=== PATIENT | male | born 1950 | race Caucasian/White ===

== ENCOUNTER 2020-02-20 11:00 | Outpatient (RCR) | payer MEDICARE, SELFPAY ==
--- NOTE | 2019-11-22 16:14 | PTOPEVAL ---
Thank you for referring this patient to [facility]. Please review, sign, date and return this plan of care SHADY. Pt seen today due to lumbago with left sciatica. He demonstrates limited and painful trunk motion, trunk and LE weakness, and decreased tolerance with daily activities. He requires additional PT 2x/wk x 6-8 wk to achieve therapy goals and allow pt to return to PLOF. I agree with and certify that the following plan of care is medically necessary. Referring Physician Date Attending Provider: Erika Ramos NP Referring Provider: *PT Outpatient Evaluation Start: 11/22/19 14:56 Freq: Status: Active Protocol: Document 11/22/19 14:58 DIANNA (Rec: 11/22/19 16:13 DIANNA [id number]) Therapy Assessment Status Assessment Status Assessment Status Evaluation Outpatient Past Medical History Cardiovascular History Hx Hypercholesterolemia Yes Hx Hypertension Yes Gastrointestinal History Hx Other Gastrointestinal Disorders Yes: anal fissure Musculoskeletal History Hx Orthopedic Surgery Yes: bilateral knee, left shoulder Hx Spinal Surgery Yes: lumbar laminectomey L3-4, cervical laminectomey Endocrine History Hx Diabetes Yes HEENT History Hx Tonsillectomy Yes Evaluation Information Problem Diagnosis lumbago with left sciatica Onset 09/24/19 Cause unknown Subjective Information He reports his back started Query Text:As Reported By Patient/ huring the end of August Family with unknown injury. He reports radiating pain from posterior buttock to foot along the posterior leg. He has increased pain with standing, walking, sleeping, ADL's for donning lower part of the body. 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 He was performing a walking program 4x/wk but stopped a year ago. 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 He wants to return to the [employer] activities. He usually rides his motorcycle for these events, but has not been able to ride. He also reports difficulty getting in/out of
--- NOTE | 2019-12-21 12:26 | PTOPEVAL ---
Thank you for referring this patient to [facility]. Please review, sign, date and return this plan of care SHADY. Pt has received 9 physical therapy visits to address back pain. He demonstrates progress with pain, LE strength, and functional mobility compared to initial evaluation. He continues to require additional skilled therapy to address remaining impairments and improve functional mobility. Cont PT 2x/wk x 4 wk. I agree with and certify that the following plan of care is medically necessary. Referring Physician Date Attending Provider: Erika Ramos NP Referring Provider: *PT Outpatient Evaluation Start: 11/22/19 14:56 Freq: Status: Active Protocol: Document 12/21/19 10:02 DIANNA (Rec: 12/21/19 10:47 [facility] [id number]) Therapy Assessment Status Assessment Status Assessment Status Re-evaluation Outpatient Past Medical History Cardiovascular History Hx Hypercholesterolemia Yes Hx Hypertension Yes Gastrointestinal History Hx Other Gastrointestinal Disorders Yes: anal fissure Musculoskeletal History Hx Orthopedic Surgery Yes: bilateral knee, left shoulder Hx Spinal Surgery Yes: lumbar laminectomey L3-4, cervical laminectomey Endocrine History Hx Diabetes Yes HEENT History Hx Tonsillectomy Yes Evaluation Information Problem Diagnosis lumbago with left sciatica Onset 09/24/19 Cause unknown Additional Evaluation Detail He reports his back started huring the end of August with unknown injury. 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 He wants to return to the [employer] activities. Subjective Information He cont have radiating Query Text:As Reported By Patient/ symptoms into left buttock and Family leg region. INcreased symptoms with movement and occasionally when seated. He cont to have problems and pain with standing, walking, sleeping, ADL's for donning lower part of the body. He is able to lift his left leg slightly higher with ADL's. He cont to have problems with getting in/out of the trunk with intermittent improved tolerance.
--- NOTE | 2020-01-19 15:54 | PTOPEVAL ---
Thank you for referring this patient to [facility]. Please review, sign, date and return this plan of care SHADY. Pt has received 15 therapy visits to address impairments related to has back and hip pain. He is progressing towards his therapy goals and functional mobility. HE requires additional skilled therapy 2x/wk x 4 wk to achieve therapy goals. I agree with and certify that the following plan of care is medically necessary. Referring Physician Date Attending Provider: Erika Ramos NP Referring Provider: *PT Outpatient Re-Evaluation Start: 11/22/19 14:56 Freq: Status: Active Protocol: Document 01/19/20 08:31 DIANNA (Rec: 01/19/20 09:06 [facility] [id number]) Therapy Assessment Status Assessment Status Assessment Status Re-evaluation Outpatient Past Medical History Cardiovascular History Hx Hypercholesterolemia Yes Hx Hypertension Yes Gastrointestinal History Hx Other Gastrointestinal Disorders Yes: anal fissure Musculoskeletal History Hx Orthopedic Surgery Yes: bilateral knee, left shoulder Hx Spinal Surgery Yes: lumbar laminectomey L3-4, cervical laminectomey Endocrine History Hx Diabetes Yes HEENT History Hx Tonsillectomy Yes Evaluation Information Problem Diagnosis lumbago with left sciatica Onset 09/24/19 Cause unknown Additional Evaluation Detail He reports his back started huring the end of August with unknown injury. 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 He wants to return to the [employer] activities. Subjective Information He cont have radiating Query Text:As Reported By Patient/ symptoms into left buttock and Family leg region that have decreased in the intensity and decreased frequency. Reports increased pain following repeated bending over to pickle pumper trash yesterday. He cont to have problems and pain with prolonged standing, walking and ADL's for donning lower part of the body. He is able to lift his left leg slightly higher with ADL's. He reports improved asiya with getting in/ out of the trunk but cont pain
--- NOTE | 2020-02-20 16:06 | PTOPEVAL ---
Thank you for referring Vince Cm to [facility]. Please review, sign, date and return this plan of care SHADY. Pt has received 24 therapy visits from 11/22/19-02/20/20 to address his back and hip pain. He demonstrates significant improvement with symptoms, pain level, tolerance with daily activities, muscle strength and joint motion. He is indep with a HEP with improved understanding of proper movement pattern to decrease flare-up of symptoms. DC skilled therapy at this time. I agree with and certify that the following plan of care is medically necessary. Referring Physician Date Attending Provider: Erika Ramos NP Referring Provider: Therapy Discharge Assessment: *PT Outpatient Evaluation Start: 11/22/19 14:56 Freq: Status: Active Protocol: Document 02/20/20 10:58 DIANNA (Rec: 02/20/20 11:35 DIANNA [id number]) Therapy Assessment Status Evaluation Information Problem Diagnosis lumbago with left sciatica Onset 09/24/19 Cause unknown Additional Evaluation Detail He reports his back started huring the end of August with unknown injury. 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 He wants to return to the [employer] activities. Subjective Information He cont numbness of left thigh Query Text:As Reported By Patient/ that has been there since he Family had surgery and has not improved with therapy. He cont to have left posterior hip region. He is able to stand and sit for up to 30 min now, but does cont to have pain. He cont to have left leg pain with ADL's for donning lower part of the body. He is able to lift his left leg higher with ADL's but cont discomfort. He reports improved asiya with getting in/ out of the trunk. He does not have to assist with the movement of left LE. He is able to lift weighted objects now without changes in pain. He con to have pain with hip rotation stretching. Pain Assessment Timing of Pain Assessment Timing of Pain Assessment Re-assessment Pain Scale Pain Scale Used Numeric (1 - 10) Self Repor
== END 2020-02-20 23:59 | disposition home or self-care (01) ==
LOC: ANHPT 11:00
PROVIDERS: PCP Internal Medicine; Visit Provider Nurse Practitioner
DX: M54.42 Lumbago with sciatica, left side (principal)
CPT/HCPCS: 97014; 97110; 97112; 97140; 97162; G0283

== ENCOUNTER 2020-06-10 13:23 | Emergency (ER) | payer MEDICARE, SELFPAY ==
--- NOTE | 2020-06-10 13:27 | ED.GENADULT ---
HPI - General Adult General Chief complaint: Upper Respiratory Infection Stated complaint: Sore throat Time Seen by Provider: 06/10/20 13:26 Source: patient Mode of arrival: ambulatory Limitations: no limitations History of Present Illness HPI narrative: 70-year-old male patient presents to the [facility] with complaints of a sore throat for the past week. Patient states he has also had a little bit of congestion as well as a mild nonproductive cough. Patient denies any fevers, body aches or chills. Patient denies any chest pain or shortness of breath. Patient does have history of diabetes. Patient states he has had strep before in the past and this past October. Patient states that the sore throat is more intense this time than it was the last time he had strep. Patient states he has been taking [id number] Chloraseptic spray and warm salt water gargles for his symptoms but denies taking any antihistamines. Related Data Home Medications Medication Instructions Recorded Confirmed aspirin [Adult Low Dose Aspirin] 81 mg PO DAILY 10/26/19 04/16/20 clobetasol 0.05 % TOPICAL BID 10/26/19 04/16/20 dulaglutide [Trulicity] 1.5 mg SUBCUT WEEKLY 10/26/19 04/16/20 metformin 500 mg PO BID 10/26/19 04/16/20 pioglitazone 30 mg PO DAILY 10/26/19 04/16/20 Allergies Allergy/AdvReac Type Severity Reaction Status Date / Time Penicillins Allergy Unknown Unknown Verified 04/16/20 10:50 Review of Systems Review of Systems: Narrative: CONSTITUTIONAL: Denies fever, chills, or sweats. EYES: Denies visual changes, redness, or discharge. ENT: Denies rhinorrhea, positive congestion, positive sore throat, denies otalgia. CARDIOVASCULAR: Denies chest pain, palpitations, or edema. RESPIRATORY: Positive cough, denies dyspnea. GASTROINTESTINAL: Denies abdominal pain, nausea, vomiting, or diarrhea. GENITOURINARY: Denies dysuria or hematuria. SKIN: Denies rash or itching. MUSCULOSKELETAL: Denies back pain, joint pain, or myalgia. NEUROLOGIC: Denies headache, numbness, or weakness. PSYCHIATRIC: Denies anxiety or depression. [facility] Past Medical History Medical History Anal fissure Diabetes Hypertension Sleep apnea Surgical History Surgical History H/O arthroscopy of left knee x2 H/O arthroscopy of right knee History of arthroscopy of left shoulder History of laminectomy cervical laminectomy History of lumbar laminectomy Hx of tonsillectomy Family History Family History Mother Diabetes mellitus Hypertension Chronic renal failure, stage 4 (severe) Aortic stenosis History of heart valve replacement Glaucoma Father Diabetes mellitus, Onset Age: 78 Hypertension, Onset Age: 78 Cerebrovascular accident, Onset Age: 78 Family history of Parkinson's disease Sibling Hypertension Family history of lung cancer, Onset Age: 49 Family history of malignant neoplasm of breast in first degree relative, Onset Age: 49 Grandparent Crohn's disease Heart attack Grandparent Alzheimer's disease Aneurysm Sibling Drug use Sepsis Sibling Hypertension High cholesterol Glaucoma Daughter Thyroid disorder Social History Social History Smoking status: Former smoker Smoking end date: 10/26/78 Comments At the time of my signature I agree with nursing past medical history, surgical, social, and family history. There is no relevant family history pertinent to the presenting complaint. Exam Narrative: Exam Narrative: GENERAL: Well-appearing, well-nourished, and in no acute distress. HEAD: Normocephalic, atraumatic. EYES: PERRLA and EOMI. ENT: Nares with erythema and edema noted bilaterally, no rhinorrhea or epistaxis. Mucous membranes moist. Posterior pharynx with slight erythema but no tonsil
[2020-06-10 13:36] VITALS: BP 175/71; PULSE 54; RESP 20; TEMP 36.3; O2SAT 100
== END 2020-06-10 14:15 | disposition home or self-care (01) ==
PROVIDERS: Emergency Provider Nurse Practitioner Family; PCP Internal Medicine
DX: Z20.828 Contact with and (suspected) exposure to other viral communicable diseases (principal); J02.9 Acute pharyngitis, unspecified; E11.9 Type 2 diabetes mellitus without complications; I10 Essential (primary) hypertension; G47.30 Sleep apnea, unspecified; Z79.82 Long term (current) use of aspirin; Z87.891 Personal history of nicotine dependence
CPT/HCPCS: 87081; 87880; 99213; G0463

== ENCOUNTER 2022-02-25 06:57 | Outpatient (CLI) | payer MEDICARE, SELFPAY ==
--- NOTE | 2022-03-04 21:24 | WPDSLEEPSTUD ---
Sleep Study Date of Study: 02/25/22 Ordering Provider: Ira Ricci MD Interpreting Physician: Ira Ricci MD Sleep Study Type: Split Polysomnogram Height: 1.73 m Weight: 97.069 kg Body Mass Index: 32.5 Neck Circumference (inches): 18 [place]: 13 Reason for Sleep Study hypersomnolence Sleep History Vince Cm is a 71-year-old male with obstructive sleep apnea, now on auto PAP 12-16 cm with 2 of EPR. He was on a fixed CPAP setting then switched to auto PAP without improvement. He started using PAP therapy when he was 64 years old, just 6 months before he was on Medicare and was disappointed after becoming 65 that he had to requalify. He was retested re-treated. In addition he had to start the payment process over again. He is sleepy in the day. His sleep quality is very poor. He wakes during the night to urinate. He takes naps in the day. His initial sleep test was outside of the [facility] system, about 20 years ago. He is now retesting. When he rolls over in bed he has to throw the CPAP hose over his head. He has frequent urination at night. He does not awaken from sleep feeling short of breath. He rarely awakens at night with heartburn, belching or coughing. He constantly snores loudly enough that others complain about it. He has a difficult time falling asleep and staying asleep. He occasionally has trouble sleeping with a cold. He does not wake up gasping for breath at night. He does not sweat excessively at night or notice his heart pounding or beating irregularly at night. He frequently falls asleep during the day never while driving. Does not have loss of muscle tone with strong emotion. He is retired so his daytime sleepiness isn't a big problem. He does not feel paralyzed on waking or falling asleep. He does not have vivid dreamlike scenes on awakening or falling asleep. He does not feel afraid to go to sleep. He rarely has nightmares. He frequently remembers his dreams and frequently has racing thoughts. He does not feel sad or depressed. Rarely has anxiety. He occasionally has muscular tension. He occasionally has crawling and aching feelings in his legs and occasional leg pain at night. He does not have morning jaw pain. He does not grind his teeth during sleep. He frequently is bothered by pain during the day, occasionally awakened by pain at night. He frequently wakes up feeling stiff in the morning with sore achy muscles and pain in the neck and spine. He has fatigue. Normal bedtime is between 10:00 p.m. and 12 midnight taking 1/2 hour to fall asleep typically waking up anywhere between 5 and 10 at night to go to the bathroom and reposition. His wake up time is variable. He does not generally have a fixed wake-up time during the week. He takes naps in the afternoon or evening. A short nap may be refreshing. He rarely awakens feeling refreshed. He frequently has daytime sleepiness. Habits: Quit tobacco 43 years ago. Caffeine 4-5 servings a day. No alcohol or recreational drugs. [facility] Past Medical History Medical History Anal fissure Diabetes Hypertension ALFA on CPAP Surgical History Surgical History (Updated 03/04/22 @ 21:49 by Ira Ricci MD) H/O arthroscopy of left knee x2 H/O arthroscopy of right knee Heart valve replaced History of arthroscopy of left shoulder History of laminectomy cervical laminectomy History of lumbar laminectomy Hx of tonsillectomy Family History Family History Mother Diabetes mellitus Hypertension Chronic renal failure, stage 4 (severe) Aortic stenosis History of heart valve replacement Glaucoma Father Diabetes mellitus, Onset Age: 78 Hypertension, Onset Age: 78 Cerebrovascular accident, Onset Age: 78 Family history of Parkinson's disease Sibling Hypertension Family history of lung cancer, Onset Ag
[2022-03-04 21:54] VITALS: BMI 32.5
== END 2022-02-26 06:19 | disposition home or self-care (01) ==
LOC: ANHCSM 07:02
PROVIDERS: PCP Internal Medicine; Visit Provider Internal Medicine Critical Care Medicine
DX: G47.33 Obstructive sleep apnea (adult) (pediatric) (principal); Z68.32 Body mass index [BMI] 32.0-32.9, adult
CPT/HCPCS: 95811

== ENCOUNTER 2023-04-22 06:50 | Outpatient (CLI) | payer MEDICARE, SELFPAY ==
--- NOTE | ~2023-04-22 | MR_ITS ---
EXAMINATION: MR abdomen wo/w con INDICATION: Left abdominal and flank pain TECHNIQUE: Coronal SSFSE ARC, WATER:coronal LAVA-FLEX, Coronal 2D FIESTA FatSat, Axial SSFSE BH ARC, Axial 3D DualEcho BH, Axial SSFSE-IR, Axial DWI b=500, Axial 2D FIESTA FatSat, pre and dynamic postco ntrast Axial LAVA ARC, postcontrast Coronal In and Opposed phase LAVA FLEX COMPARISON: None available CONTRAST: Multihance, 19 cc FINDINGS: The liver, spleen, pancreas, gallbladder, and adrenal glands are normal. The left kidney is unremarkable. Cysts of the right kidney measure up to 5.3 cm. There are no pathologically enlarged a bdominal lymph nodes. No dilated loops of bowel are evident. IMPRESSION: 1. No MRI correlate for the patient's symptoms. Reviewed, dictated and finalized at location []
== END 2023-04-22 06:51 | disposition home or self-care (01) ==
PROVIDERS: PCP Internal Medicine; Visit Provider Nurse Practitioner
DX: R10.9 Unspecified abdominal pain (principal)
CPT/HCPCS: 74183; A9577

== ENCOUNTER 2023-09-11 12:40 | Outpatient (CLI) | payer MEDICARE, SELFPAY ==
--- NOTE | 2023-09-11 13:07 | ECHO_ITS ---
Patient Info Name: Vince Cm Age: 73 years : 1950 Gender: Male Ht: 68 in Wt: 213 lbs BSA: 2.18 m2 BP: 148 / 82 mmHg Technical Quality: Good Exam Date: 09/11/2023 1:12 PM Exam Location: Echo Lab Patient Status: Outpatient Admit Date: 09/11/2023 Staff Ordering Physician: Ira Ricci MD Derrick Follower: Radha Gonzalez RDCS Attending Provider: Ira Ricci MD Referring Physician: Radhames HERNANDEZ; Exam Type: CA echo doppler color flow Study Info Indications R01.1 - Cardiac murmur, unspecified Complete two-dimensional, color flow and Doppler transthoracic echocardiogram is performed. Summary 1. Complete two-dimensional, color flow and Doppler transthoracic echocardiogram is performed. 2. Left ventricular chamber dimension is normal. 3. Left ventricular systolic function is normal, estimated at 65-70%. 4. The left ventricular diastolic function is grade I diastolic dysfunction. 5. E/e' 9 is minimally elevated. 6. There is moderate aortic valve sclerosis. 7. There is mild aortic valve stenosis with a peak velocity of 189 cm/s, mean gradient of 8 mmHg, and aortic valve area of 2.1 cm2. 8. There is trace mitral valve regurgitation. 9. No pulmonary hypertension, estimated pulmonary arterial systolic pressure is 27 mmHg. Left Ventricle E/e' 9 is minimally elevated. Left ventricular chamber dimension is normal. Left ventricular systolic function is normal, estimated at 65-70%. The left ventricular diastolic function is grade I diastolic dysfunction. Right Ventricle Right ventricular chamber dimension is normal. Right ventricular systolic function is normal. Left Atria Left atrial chamber dimension is normal. Right Atria Right atrial chamber dimension is normal. Aortic Valve The aortic valve is trileaflet. There is moderate aortic valve sclerosis. There is mild aortic valve stenosis with a peak velocity of 189 cm/s, mean gradient of 8 mmHg, and aortic valve area of 2.1 cm2. There is no aortic valve regurgitation. Pulmonic Valve There is no pulmonic regurgitation. Mitral Valve There is no mitral valve stenosis. There is trace mitral valve regurgitation. Tricuspid Valve There is no tricuspid valve regurgitation. No pulmonary hypertension, estimated pulmonary arterial systolic pressure is 27 mmHg. Pericardium/Pleural There is no pericardial effusion. Inferior Vena Cava Normal inferior vena cava with >50% collapse upon inspiration consistent with normal right atrial pressure, 5 mmHg. Aorta The aortic root size at the sinus of Valsalva is normal. Left Ventricular Outflow Tract Name Value Normal LVOT 2D LVOT Diameter 2.0 cm LVOT Doppler LVOT Peak Gradient 4 mmHg LVOT Mean Gradient 3 mmHg LVOT VTI 26 cm LVOT VTI/AV VTI Ratio 0.7 LVOT Stroke Volume 81 ml LVOT CO 4.5 l/min LVOT CI 2.1 l/min/m2 Pulmonic Valve Name Value Normal
== END 2023-09-11 12:41 | disposition home or self-care (01) ==
PROVIDERS: PCP Internal Medicine; Visit Provider Internal Medicine Critical Care Medicine
DX: R01.1 Cardiac murmur, unspecified (principal); I35.8 Other nonrheumatic aortic valve disorders
CPT/HCPCS: 93306

== ENCOUNTER 2024-10-10 12:24 | Outpatient (CLI) | payer MEDICARE, SELFPAY ==
--- NOTE | ~2024-10-10 | MR_ITS ---
EXAMINATION: MR knee LT wo con DATE: 10/10/2024 13:00 INDICATION: Left knee pain. Other tear of medial meniscus. TECHNIQUE: Magnetic resonance imaging (MRI) of the left knee was performed without intravenous contra st. Sequences included axial PD-weighted FS FSE, coronal PD-weighted FSE and PD-weighted FS FSE, sagi ttal PD-weighted FSE, and sagittal T2-weighted FS FSE. COMPARISON: Left knee radiographs 09/29/2024 FINDINGS: Medial compartment: There is an undersurface horizontal tear of body and posterior horn of medial meniscus. There is shal low partial-thickness cartilage loss of femoral condyle and tibial condyle. Marginal osteophytes are noted. Lateral compartment: Lateral meniscus is normal. There is cartilage surface irregularity of tibial condyle and femoral con dyle. There are tiny marginal osteophytes. Patellofemoral compartment: There is thickness cartilage loss of patellar medial facet and deep partial-thickness cartilage loss of patellar median ridge and lateral facet with mild subchondral edema-like marrow signal intensity. There is partial-thickness cartilage loss of trochlea, deep at the medial trochlea. Osteophytes are n oted. Ligaments and tendons: The anterior and posterior cruciate ligaments are intact. Medial collateral ligament is normal. There are changes of prior sprain of fibular collateral ligament characterized by thickening and increased signal intensity proximally. There is mild patellar tendinopathy. Fluid: There is a small knee joint effusion. There is mild prepatellar and superficial infrapatellar bursiti s. IMPRESSION: 1. Severe chondrosis of patellofemoral compartment and mild chondrosis of medial and lateral compartm ents. 2. Tear of medial meniscus. 3. Small knee joint effusion. Reviewed, dictated and finalized at location A. [employer] IMPRESSION: 1. Severe chondrosis of patellofemoral compartment and mild chondrosis of media l and lateral compartments. 2. Tear of medial meniscus. 3. Small knee joint effusion.
== END 2024-10-10 12:25 | disposition home or self-care (01) ==
LOC: GOSHIMG 12:25
PROVIDERS: PCP Internal Medicine; Visit Provider Orthopaedic Surgery
DX: M94.262 Chondromalacia, left knee (principal); S83.242A Other tear of medial meniscus, current injury, left knee, initial encounter; X58.XXXA Exposure to other specified factors, initial encounter; M25.462 Effusion, left knee
CPT/HCPCS: 73721